=== PATIENT | female | born 1950 | race Caucasian/White ===

== ENCOUNTER 2022-08-01 14:18 | Outpatient (CLI) | payer MEDICARE, BC | END 2022-08-01 23:59 | disposition home or self-care (01) | LOC: RAD 14:18 | DX: S92.355A Nondisplaced fracture of fifth metatarsal bone, left foot, initial encounter for closed fracture (principal); M77.32 Calcaneal spur, left foot; M79.672 Pain in left foot; X58.XXXA Exposure to other specified factors, initial encounter; Y93.89 Activity, other specified; Y92.89 Other specified places as the place of occurrence of the external cause; Y99.8 Other external cause status | CPT/HCPCS: 73630-TC ==

== ENCOUNTER 2023-12-31 12:06 | Inpatient (IN) | payer BC, MEDICARE ==
[~2023-12-31] VITALS: Ht 167.6 cm; Wt 70.8 kg
[2023-12-31 12:40] LABS: BASOPHILS % (AUTO) 0.5 % (0.0-2.0); EOSINOPHILS % (AUTO) 0.6 % (0.0-6.0); HEMATOCRIT 28 % (33-45); HEMOGLOBIN 9.5 g/dL (11.5-14.8); LYMPHOCYTES # (AUTO) 1.1 K/uL (0.8-4.8); LYMPHOCYTES % (AUTO) 15.1 % (20.0-44.0); MEAN CORPUSCULAR HEMOGLOBIN 32 PG (26.0-33.0); MEAN CORPUSCULAR HGB CONC 34 g/dl (31.0-36.0); MEAN CORPUSCULAR VOLUME 92 fL (82-100); MONOCYTES # (AUTO) 0.2 K/uL (0.1-1.30); MONOCYTES % (AUTO) 3.2 % (2.0-12.0); NEUTROPHILS # (AUTO) 5.6 K/uL (1.8-8.9); NEUTROPHILS % (AUTO) 80.6 % (43.0-81.0); PLATELET COUNT (AUTO) 300 K/uL (150-450); RED CELL DISTRIBUTION WIDTH 13.9 % (11.5-15.0)
[2023-12-31 13:09] LABS: CALCIUM, SERUM 8.4 mg/dL (8.5-10.1); CARBON DIOXIDE 23 mmol/L (21-32); CHLORIDE 104 mmol/L (98-107); CREATININE 0.7 mg/dL (0.6-1.3); GLUCOSE 114 mg/dL (74-106); POTASSIUM 4.5 mmol/L (3.5-5.1); SODIUM SERUM 136 mmol/L (136-145); UREA NITROGEN, BLOOD 45 mg/dL (7-18)
[2023-12-31 13:15] LABS: ALANINE AMINOTRANSFERASE 16 U/L (12-78); ALBUMIN 3.6 g/dL (3.4-5.0); ALKALINE PHOSPHATASE 40 U/L (46-116); ASPARTATE AMINOTRANSFERASE 11 U/L (15-37); BILIRUBIN,DIRECT 0.1 mg/dL (0.0-0.2); BILIRUBIN,TOTAL 0.3 mg/dL (0.2-1.0); TOTAL PROTEIN, SERUM 6.6 g/dL (6.4-8.2)
[2023-12-31 13:23] LABS: APPEARANCE,URINE SLIGHTLY CLOUDY (CLEAR); BILIRUBIN,URINE NEGATIVE (NEGATIVE); BLOOD, URINE 1+ Ery/uL (NEGATIVE); COLOR,URINE YELLOW (YELLOW); KETONES,URINE NEGATIVE (NEGATIVE); LEUKOCYTE ESTERASE ,URINE NEGATIVE (NEGATIVE); NITRITE, URINE NEGATIVE (NEGATIVE); PROTEIN,URINE NEGATIVE (NEGATIVE); UGLUCOSE NEGATIVE (NEGATIVE); UROBILINOGEN,URINE 0.2 EU/dL (0.2)
[2023-12-31 13:31] LABS: BACTERIA,URINE Moderate /HPF (None Seen); SQUAMOUS EPITHELIAL CELL,UR Many /HPF (None Seen)
[2023-12-31 13:32] LABS: ADD URINE CULTURE YES; RBC,URINE 0-2 /HPF (0-2)
[2023-12-31] MEDS: IV NS 0.9% 1,000 ML BAG IV STA (15:46)
[2023-12-31 15:49] LABS: PHOSPHORUS 3.1 mg/dL (2.5-4.9)
[2023-12-31] MEDS ORDERED: ONDANSETRON HCL/PF 4 MG/2 ML VIAL IVP PRN (19:30)
[2023-12-31 20:00] VITALS: BP 117/70; TEMP 99.7; O2SAT 98
[2023-12-31] MEDS: HYDROCODONE/APAP 10/325MG TABLET PO PRN (21:15)
[2023-12-31 22:20] VITALS: BP 125/77; O2SAT 100
[2023-12-31 22:22] VITALS: BP 111/79; O2SAT 100
[2023-12-31 22:24] VITALS: BP 114/77; O2SAT 100
[2024-01-01] VITALS (7 sets, daily range): BP systolic 100–135; BP diastolic 59–95; TEMP 97.9–99; O2SAT 96–98
[2024-01-01] MEDS: ACETAMINOPHEN 325 MG TABLET PO PRN (03:17)
[2024-01-01] MEDS: METOPROLOL TARTRATE INJ 5 MG/5 ML AMPUL IVP ONE (04:02)
[2024-01-01] MEDS: IV NS 0.9% 1,000 ML IV PRN (04:37)
[2024-01-01 07:43] LABS: BASOPHILS % (AUTO) 0.7 % (0.0-2.0); EOSINOPHILS # (AUTO) 0.2 K/uL (0.0-0.7); EOSINOPHILS % (AUTO) 2.4 % (0.0-6.0); HEMATOCRIT 27 % (33-45); HEMOGLOBIN 8.9 g/dL (11.5-14.8); LYMPHOCYTES # (AUTO) 2.7 K/uL (0.8-4.8); LYMPHOCYTES % (AUTO) 37.7 % (20.0-44.0); MEAN CORPUSCULAR HEMOGLOBIN 31 PG (26.0-33.0); MEAN CORPUSCULAR HGB CONC 33 g/dl (31.0-36.0); MEAN CORPUSCULAR VOLUME 91 fL (82-100); MONOCYTES # (AUTO) 0.5 K/uL (0.1-1.30); MONOCYTES % (AUTO) 6.3 % (2.0-12.0); NEUTROPHILS # (AUTO) 3.7 K/uL (1.8-8.9); NEUTROPHILS % (AUTO) 52.9 % (43.0-81.0); PLATELET COUNT (AUTO) 302 K/uL (150-450); RED BLOOD CELL COUNT(AUTO) 2.92 MIL/uL (4.0-5.2); WHITE BLOOD COUNT (AUTO) 7.1 K/uL (4.3-11.0)
[2024-01-01 08:10] LABS: CALCIUM, SERUM 8.6 mg/dL (8.5-10.1); CARBON DIOXIDE 22 mmol/L (21-32); CHLORIDE 109 mmol/L (98-107); CREATININE 0.7 mg/dL (0.6-1.3); GLUCOSE 120 mg/dL (74-106); MAGNESIUM 2.2 mg/dL (1.8-2.4); PHOSPHORUS 3.4 mg/dL (2.5-4.9); POTASSIUM 3.6 mmol/L (3.5-5.1); SODIUM SERUM 143 mmol/L (136-145); UREA NITROGEN, BLOOD 12 mg/dL (7-18)
[2024-01-01] MEDS: APIXABAN 5 MG TABLET PO SCH (08:48)
[2024-01-01] MEDS ORDERED: CETI-90 PO (11:09)
[2024-01-01] MEDS ORDERED: ESTR10TA9 VG (11:09)
[2024-01-01] MEDS ORDERED: LORA-258 PO (11:09)
[2024-01-01] MEDS ORDERED: CARI350T27 PO (11:09)
[2024-01-01] MEDS ORDERED: MULT-594 PO (11:09)
[2024-01-01] MEDS: AMIODARONE 150 MG in IV D5W 100 ML IV ONE (15:03)
[2024-01-01] MEDS: AMIODARONE 450 MG in IV D5W 241 ML IV PRN (15:30)
[2024-01-01] MEDS: RIVAROXABAN 10 MG TABLET PO SCH (16:52)
[2024-01-01] MEDS: LORAZEPAM 1 MG TABLET PO PRN (22:38)
[2024-01-02] VITALS (12 sets, daily range): BP systolic 93–137; BP diastolic 55–99; TEMP 97.7–99.3; O2SAT 97–100
[2024-01-02] MEDS: METOPROLOL TARTRATE 25 MG TABLET PO SCH (12:27)
[2024-01-02] MEDS ORDERED: LORAZEPAM 0.5 MG TABLET PO PRN (12:30)
[2024-01-02] MEDS ORDERED: PROPOFOL 20 ML IV ONE ×2 (16:16)
[2024-01-02] MEDS: HYDROCODONE/APAP 10/325MG TABLET PO PRN (21:08)
[2024-01-03] VITALS: BP 116/61; TEMP 98.5; O2SAT 100
[2024-01-03 04:00] VITALS: BP 112/54; TEMP 97.6; O2SAT 98
[2024-01-03 08:00] VITALS: BP 115/61; TEMP 99; O2SAT 96
[2024-01-03 09:06] VITALS: BP 115/61
[2024-01-03] MEDS ORDERED: METO25TA20 PO (10:52)
[2024-01-03] MEDS ORDERED: RIVA10TA PO (10:52)
== END 2024-01-03 11:35 | disposition home or self-care (01) | DRG 309 ==
LOC: ER 12:48 → TELE1 15:04 → TELE 15:47 → TELE1 01-01 14:40 → TELE-TD 01-01 14:50 → ICU 01-02 15:49 → TELE1 01-02 17:35 → TELE-TD 01-02 19:44
PROVIDERS: ADMIT Nurse Practitioner Acute Care; ATTEND Nurse Practitioner Acute Care
PROC: 5A2204Z Restoration of Cardiac Rhythm, Single (ICD-10-PCS; principal; 2024-01-02)
DX: I48.91 Unspecified atrial fibrillation (principal); N39.0 Urinary tract infection, site not specified; R55 Syncope and collapse; G47.00 Insomnia, unspecified; F41.9 Anxiety disorder, unspecified; D64.9 Anemia, unspecified; Z88.0 Allergy status to penicillin; Z88.2 Allergy status to sulfonamides; B96.89 Other specified bacterial agents as the cause of diseases classified elsewhere; E86.0 Dehydration
CPT/HCPCS: 36415; 70450-TC; 71045-TC; 80048-TC; 80076-TC; 81001; 82962-TC; 83735-TC; 83880; 84100-TC; 84443-TC; 84484-TC; 85025-TC; 87086-TC; 93307-TC; 93312-TC; 93880-TC; 97112-TC; 97116-TC; 97530-TC; A4223; G0378; J0282; J2704; J3490; J7030; J7040; J7050; J7060